=== PATIENT | male | born 1945 | race Caucasian/White ===

== ENCOUNTER 2019-10-28 10:38 | Inpatient (IN) ==
--- NOTE | 2019-10-28 11:54 | Emergency Department Note ---
History of Present Illness General Chief Complaint: Fall History of Present Illness This patient is a 74-year-old male who presents to the emergency department by ambulance for evaluation of severe pain in the right lateral hip secondary to a fall. The patient slipped on a step walking into [place]. He fell directly on the outside of his right hip. He also sustained a minor abrasion to the right elbow. He denies hitting his head. He denies any neck or back pain. No injuries to his chest or abdomen. Patient has a history of a hip replacement 4 years ago. His pain is sharp, stabbing in nature. It is worse with weightbearing. He is having difficulty putting any weight on the right leg. He has not taken anything for pain. Home Medications Home Medications Medication Instructions Recorded Confirmed Type lisinopril 5 mg PO DAILY 10/28/19 10/28/19 History rosuvastatin 20 mg PO DAILY 10/28/19 10/28/19 History sitagliptin [Januvia] 50 mg PO DAILY 10/28/19 10/28/19 History tamsulosin 0.4 mg PO DAILY 10/28/19 10/28/19 History Allergies Allergy/AdvReac Type Severity Reaction Status Date / Time No Known Allergies Allergy Unverified 10/28/19 11:11 Past Med/Surg History Social History Preferred Language: Korean Communication Ability: Effective Beliefs That Will Affect Care: Latter-Day Latter-Day Beliefs: ORIENTAL ORTHODOX Current Living Situation: Alone Other Information That Helps Us Care for You: No Feels Safe at Home: Yes Safety Concerns: Feels Safe At This Time Smoking Status: Never smoker Hx Alcohol Use: No Hx Substance Use: No Review of Systems A total of 10 systems reviewed and were otherwise negative Physical Exam Vital Signs Vital Signs - 24 hr 10/28/19 10:44 10/28/19 10:45 10/28/19 12:00 Temperature 36.5 C Temperature Source Oral Pulse Rate 59 L 67 Pulse Rate from SpO2 Sensor 61 63 Respiratory Rate 15 21 17 Respiratory Effort / Characteristics Non-Labored Spontaneous Respiratory Depth Normal Blood Pressure 159/62 H 159/62 H Blood Pressure Mean 85 94 Blood Pressure Position Sitting Pulse Oximetry 99 99 98 Oxygen Delivery Method Room Air Sepsis Recent Fever Within 48 Hours No Sepsis Action Taken by Nursing No Action Required 10/28/19 12:03 10/28/19 12:19 10/28/19 12:30 Temperature Temperature Source Pulse Rate 66 61 Pulse Rate from SpO2 Sensor 63 65 60 Respiratory Rate 20 18 16 Respiratory Effort / Characteristics Respiratory Depth Blood Pressure 162/90 H 162/90 H Blood Pressure Mean 119 119 Blood Pressure Position Pulse Oximetry 98 98 99 Oxygen Delivery Method Sepsis Recent Fever Within 48 Hours Sepsis Action Taken by Nursing 10/28/19 13:57 10/28/19 14:00 10/28/19 14:30 Temperature Temperature Source Pulse Rate 63 60 63 Pulse Rate from SpO2 Sensor 63 61 63 Respiratory Rate 13 9 L 13 Respiratory Effort / Characteristics Respiratory Depth Blood Pressure 149/70 H 149/76 H 169/92 H Blood Pressure Mean 84 107 123 Blood Pressure Position Pulse Oximetry 99 99 99 Oxygen Delivery Method Sepsis Recent Fever Within 48 Hours Sepsis Action Taken by Nursing Constitutional WD/WN, vitals as above Eyes EOM intact bilaterally ENMT external ear and nose normal, oropharynx normal Neck trachea midline Respiratory normal respiratory effort, lungs clear to auscultation Cardiovascular RRR, no murmur, no edema Gastrointestinal (Abdomen) normal bowel sounds, soft, nontender, no hepatosplenomegaly Musculoskeletal Tenderness to palpation noted over the lateral aspect of the right hip. The patient is reluctant to flex the hip. No limb length discrepancy noted. Sensation in the lower extremities is intact bilaterally. DP pulse +2 bilaterally dorsiflexion and plantarflexion of the feet intact bilaterally. Skin no rashes, warm and dry Neurologic Alert and oriented x3. No focal motor deficits. Psychiatric Acting appropriately Course The patient was seen and examined. He declined pain medication. Imaging was performed and reviewed Upon reevaluation, the patient was resting comfortably. We discussed his results. He and his daughter voiced understanding. The case was discussed with orthopedics in addition to the hospitalist group Labs are drawn. A saline lock was established. The patient will be evaluated by the hospitalist group for likely admission Consultations Consultation #1: Dr. Beltran Consultation #2: [place] hospitalist group Administered Medications Sodium Chloride (Nss 1000ml) 1,000 mls @ 80 mls/hr IV .[id number] JAMES Stop: 10/29/19 04:29 Last Admin: 10/28/19 16:30 Dose: 80 mls/hr Documented by: [id number] Insulin Aspart (Novolog Flexpen) 0 units SC ACHS JAMES Stop: 11/27/19 16:29 Last Admin: 10/28/19 20:49 Dose: Not Given Documented by: [id number] Cosigned by: [id number] Admin: 10/28/19 17:21 Dose: 2 units Documented by: [id number] Cosigned by: [id number] Lisinopril (Zestril) 5 mg PO DAILY JAMES Stop: 11/27/19 16:29 Last Admin: 10/28/19 17:26 Dose: 5 mg Documented by: [id number] Senna/Docusate Sodium (Senokot S) 2 tab PO HS JAMES Stop: 11/27/19 20:59 Last Admin: 10/28/19 20:36 Dose: Not Given Documented by: [id number] Medical Decision Making Differential Diagnosis dislocation, fracture, contusion, abrasion and soft tissue injury Medical Records Attestation: I reviewed the patient's medical records. Home Medications Current Medication List: was personally reviewed by me Laboratory Data Attestation: I reviewed the patient's lab results. Result diagrams: 10/28/19 13:35 10/28/19 13:35 Lab Results 10/28/19 10/28/19 10/28/19 Range/Units 13:35 13:35 13:35 WBC 8.65 (4.8-10.8) K/uL RBC 4.05 L (4.7-6.1) M/uL Hgb 12.9 L (14.0-18.0) g/dL Hct 38.2 L (42-52) % MCV 94.3 (80-100) fL MCH 31.9 (25-34) pg MCHC 33.8 (32-36) g/dL RDW Std Deviation 43.2 (36.4-46.3) fL RDW Coeff of [place] 12.6 (11.5-14.5) % Plt Count 172 (130-400) K/uL MPV 8.8 (7.4-10.4) fL Immature Gran % (Auto) 0.2 % Neut % (Auto) 81.8 % Lymph % (Auto) 8.8 % [place] % (Auto) 7.2 % Eos % (Auto) 1.8 % Baso % (Auto) 0.2 % Immature Gran # (Auto) 0.02 (0.00-0.02) K/uL Neut # (Auto) 7.07 H (1.4-6.5) K/uL Lymph # (Auto) 0.76 L (1.2-3.4) K/uL [place] # (Auto) 0.62 H (0.11-0.59) K/uL Eos # (Auto) 0.16 (0-0.5) K/uL Baso # (Auto) 0.02 (0-0.2) K/uL PT 10.3 (9.0-12.0) Seconds INR 1.0 (0.9-1.1) Sodium 139 (136-145) mmol/L Potassium 4.5 (3.5-5.1) mmol/L Chloride 109 H (98-107) mmol/L Carbon Dioxide 24 (21-32) mmol/L Anion Gap 6.0 (3-11) BUN 26 H (7-18) mg/dl Creatinine 1.77 H (0.6-1.4) mg/dl Est Cr Clr Drug Dosing 39.6 ml/min Est GFR ( Amer) 43.2 Est GFR (Non-Af Amer) 37.3 BUN/Creatinine Ratio 14.9 (10-20) Glucose 134 H (70-99) mg/dl Calcium 9.3 (8.5-10.1) mg/dl Imaging Data Attestation: I personally reviewed and interpreted this imaging study as follows: Radiologist's Impression: X-rays right hip with pelvis Total right hip arthroplasty 2. Suspected nondisplaced proximal periprosthetic fracture. 3. No evidence of dislocation Electronically signed by: Augustus Moya M.D. 10/28/2019 11:53 AM Dictated: 10/28/19 1150 Transcribed: 10/28/19 1150 Blood Pressure Blood Pressure Findings: Elevated blood pressure Blood Pressure Disposition: elevated BP felt to be situational MDM Narrative This patient is a 74-year-old male presents to the emergency department for evaluation of hip pain. On exam, he was neurovascularly intact. He did have significant pain. The patient has a history of a prosthetic hip. He did not want anything for pain. X-rays were performed and confirmed a periprosthetic fracture. The case was discussed with orthopedics. The patient will be evaluated by the hospitalist for likely admission and orthopedic evaluation. The patient was comfortable with this plan. Impression & Plan Closed fracture of right hip Discharge Plan Visit Data *Final* Discharge Date/Time: 10/28/19 15:22 Chief Complaint: Fall ED Provider: Murali Munson ED Midlevel Provider: Jossy Kolb Discharge Problem: Closed fracture of right hip Patient Disposition: Admitted As Inpatient Discharge Instructions Interventions: ED Discharge Assessment Last Done: 10/28/19 15:22
--- NOTE | 2019-10-28 11:54 | XRay Report ---
XR hip RT 2V w pelvis CLINICAL HISTORY: Right hip pain status post trauma COMPARISON: None. DISCUSSION: There are postsurgical changes of a total right hip arthroplasty. There is a linear lucen cy involving the proximal femoral shaft just inferior to the greater trochanter extending to the pros thesis. This may indicate a nondisplaced periprosthetic fracture. There is no dislocation. IMPRESSION: 1. Total right hip arthroplasty 2. Suspected nondisplaced proximal periprosthetic fracture. 3. No evidence of dislocation Electronically signed by: Augustus Moya M.D. 10/28/2019 11:53 AM
[2019-10-28 13:44] LABS: Basophils # (auto) 0.02 K/uL (0-0.2); Basophils % (auto) 0.2 %; Eosinophils # (auto) 0.16 K/uL (0-0.5); Eosinophils % (auto) 1.8 %; Hematocrit (blood only) 38.2 % (42-52); Hemoglobin 12.9 g/dL (14.0-18.0); Immature Granulocytes # (auto) 0.02 K/uL (0.00-0.02); Immature Granulocytes % (auto) 0.2 %; Lymphocytes # (auto) 0.76 K/uL (1.2-3.4); Lymphocytes % (auto) 8.8 %; Mean Corpuscular Hemoglobin 31.9 pg (25-34); Mean Corpuscular Hgb Conc 33.8 g/dL (32-36); Mean Corpuscular Volume 94.3 fL (80-100); Mean Platelet Volume 8.8 fL (7.4-10.4); Monocytes # (auto) 0.62 K/uL (0.11-0.59); Monocytes % (auto) 7.2 %; Neutrophils # (auto) 7.07 K/uL (1.4-6.5); Neutrophils % (auto) 81.8 %; Platelet Count 172 K/uL (130-400); RDW Coefficient of Variation 12.6 % (11.5-14.5); RDW Standard Deviation 43.2 fL (36.4-46.3); Red Blood Count 4.05 M/uL (4.7-6.1); White Blood Count 8.65 K/uL (4.8-10.8)
[2019-10-28 14:00] LABS: BUN Creatinine Ratio 14.9 (10-20); Calcium 9.3 mg/dl (8.5-10.1); Creatinine Clr Calc Pharmacy 39.6 ml/min; Est GFR (African American) 43.2; Est GFR (Non-African American) 37.3; Potassium 4.5 mmol/L (3.5-5.1)
[2019-10-28 14:03] LABS: Prothrombin Time 10.3 Seconds (9.0-12.0)
[2019-10-28] MEDS ORDERED: MoRPHine SULFATE 2 MG/ML CARP IV PRN ×2 (14:39→15:43)
--- NOTE | 2019-10-28 14:56 | History & Physical Report ---
Date of Service October 28, 2019 Assessment & Plan (1) Closed right hip fracture: due to mechanical fall/lost of balance Patient slipped on steps while walking into [place] today lost his balance and fell directly on the right side, also sustained a minor abrasion of right elbow, experienced sharp /stabbing pain on rt him /worse with weightbearing. had difficulty putting any weight on the right leg. did not hit his head /no loss on consciousness No complaint of neck or back pain Denies of any dizzy spell or lightheadedness prior or after the fall, no SOB , no palpitation Patient had right hip replacement by Dr Nicolle AC on 01/03/2015 X-ray of hip shows non displaced right periprosthetic fracture [facility] is admitted[facility] of right hip Patient is ordered n.p.o. past midnight PRE-OP RISK ASSESSMENT At baseline patient is very active, Well-controlled diabetes, recent hb globin A1c 6.2 CKD stage III creatinine at baseline, No prior history of coronary artery disease, no CT, no CHF, no arrhythmia Patient patient has acceptable risk for orthopedics procedure if indicated No further cardiac work-up needed preoperatively (2) Diabetes: Type 2 diabetes /Hemoglobin A1c 6.2 on 08/14/19 ( well controlled ) On oral meds: Januvia-which will be on hold during hospital stay Insulin sliding scale, (3) CKD (chronic kidney disease) stage 3, GFR 30-59 ml/min: CKD stage III: Due to diabetic nephropathy, follows with [facility] nephrology Dr. Becerril Baseline creatinine 1.8 on 08/14/19 /estimated GFR 35 Patient had recent hospital visit with nephrology on 10/11/2019 Patient noted to be stable from chronic kidney disease standpoint Renal ultrasound on March 2019: Mild cortical changes consistent with CKD Mildly enlarging simple appearing left upper pole renal cyst with additional left parapelvic renal cyst Creatinine 1.77 which is approximate baseline Follow BMP closely as increased risk of volume loss/dehydration, acute kidney injury postoperatively Avoid NSAIDs, Avoid IV contrast HTN : BP elevated 169/92 cont Lisinopril 5 mg daily adequate pain control HYPERLIPIDEMIA : cont statin CODE STATUS : FULL CODE DVT PROPHYLAXIS : scd and teds -pre op will need Pharmacological anticoagulation post op - follow recommendation per Ortho guideline DISPOSITION : admit to med/tele PT/OT post op as per Ortho Follows with Dr Pak at [facility] History of Present Illness Chief Complaint: Fall, right hip fracture Primary Care Provider: Art Santamaria MD Disease a 74-year-old male with past medical history of type 2 diabetes, CKD stage III, hypertension, hyperlipidemia DJD status post right hip replacement approximately 4 years back In the fall landing on his right side at discharge today Patient states that he slipped on the step and lost his balance Denies of any dizzy spell or lightheadedness prior or after the fall Denies of any shortness of breath or dyspnea on exertion, At baseline very active X-ray of hip shows nondisplaced periprosthetic fracture on right hip Allergies Allergy/AdvReac Type Severity Reaction Status Date / Time No Known Allergies Allergy Unverified 10/28/19 11:11 Home Medications Home Medications Medication Instructions Recorded Confirmed Type lisinopril 5 mg PO DAILY 10/28/19 10/28/19 History rosuvastatin 20 mg PO DAILY 10/28/19 10/28/19 History sitagliptin [Januvia] 50 mg PO DAILY 10/28/19 10/28/19 History tamsulosin 0.4 mg PO DAILY 10/28/19 10/28/19 History Past Med/Surg History Social History Preferred Language: Sudanese Communication Ability: Effective Beliefs That Will Affect Care: Denominational Denominational Beliefs: ANABAPTIST Current Living Situation: Alone Other Information That Helps Us Care for You: No Feels Safe at Home: Yes Safety Concerns: Feels Safe At This Time Smoking Status: Never smoker Hx Alcohol Use: No Hx Substance Use: No Review of Systems Review of Systems: All systems reviewed & are unremarkable except as noted in HPI & below Physical Exam Constitutional: WD/WN, vitals as above no acute distress Eyes: PERRL, conjunctivae normal, anicteric sclerae ENMT: external ear and nose normal, oropharynx normal Neck: trachea midline, no thyromegaly Respiratory: normal respiratory effort, lungs clear to auscultation Cardiovascular: RRR, no murmur, no edema Gastrointestinal (Abdomen): normal bowel sounds, soft, nontender, no hepatosplenomegaly Musculoskeletal: Point tenderness on right hip area no overlying bruits noted Limited range of movement on right leg secondary to right hip pain Neurologic: PERRL, EOMI, accommodation nl, no face palsy, no dysarthria Psychiatric: A+Ox3, euthymic affect Results & Data Vital Signs (Past 12 Hours) Vital Signs Temp Pulse Resp BP Pulse Ox 10/28/19 14:30 63 13 169/92 H 99 10/28/19 14:00 60 9 L 149/76 H 99 10/28/19 13:57 63 13 149/70 H 99 10/28/19 12:30 61 16 99 10/28/19 12:19 66 18 162/90 H 98 10/28/19 12:03 20 162/90 H 98 10/28/19 12:00 17 98 10/28/19 10:45 36.5 C 67 21 159/62 H 99 10/28/19 10:44 59 L 15 159/62 H 99 Diagnostic Findings XR hip RT 2V w pelvis CLINICAL HISTORY: Right hip pain status post trauma COMPARISON: None. DISCUSSION: There are postsurgical changes of a total right hip arthroplasty. There is a linear lucency involving the proximal femoral shaft just inferior to the greater trochanter extending to the prosthesis. This may indicate a nondisplaced periprosthetic fracture. There is no dislocation. IMPRESSION: 1. Total right hip arthroplasty 2. Suspected nondisplaced proximal periprosthetic fracture. 3. No evidence of dislocation Code Status & VTE Plan VTE Prophylaxis Plan VTE Prophylaxis will be ordered: Yes
[2019-10-28] MEDS ORDERED: GLUCAGON FOR INJ 1 MG VIAL SQ PRN (15:43)
[2019-10-28] MEDS ORDERED: NALOXONE HCL 0.4 MG/1 ML VIAL/CARP IV PRN (15:43)
[2019-10-28] MEDS ORDERED: MAGNESIUM HYDROXIDE SUSP 30 ML UDC PO PRN (15:43)
[2019-10-28] MEDS ORDERED: ACETAMINOPHEN 325 MG TAB PO PRN (15:43)
[2019-10-28] MEDS ORDERED: POLYETHYLENE (MIRALAX) 17 GM PACK PO PRN (15:43)
[2019-10-28] MEDS ORDERED: GLUCOSE 40% GEL 15 GM TUBE PO PRN (15:43)
[2019-10-28] MEDS ORDERED: ALUMINUM/MAGNESIUM SUSP 30 ML UDC PO PRN (15:43)
[2019-10-28] MEDS ORDERED: ONDANSETRON INJ 2 MG/ML 2 ML VIAL IV PRN (15:43)
[2019-10-28] MEDS ORDERED: OXYCODONE HCL IR 5 MG TAB (IMMEDIATE RELEASE) PO PRN (15:43)
[2019-10-28] MEDS ORDERED: BISACODYL 10 MG SUPP PR PRN (15:43)
[2019-10-28] MEDS ORDERED: GLUCOSE 10 TABS/TUBE PO PRN (15:43)
[2019-10-28] MEDS ORDERED: MoRPHine SULFATE 4 MG/ML 1 ML CARP\\VIAL IV PRN (15:43)
[2019-10-28] MEDS ORDERED: CARBOHYDRATES FOR HYPOGLYCEMIA PO PRN (15:43)
[2019-10-28] MEDS ORDERED: DEXTROSE 50% 50 ML SYRINGE IV PRN (15:43)
[2019-10-28] MEDS ORDERED: SODIUM CHLORIDE 0.9% 1000ML 1,000 ML IV SCH (16:00)
[2019-10-28] MEDS ORDERED: ACETAMINOPHEN 500 MG TAB PO PRN (16:20)
[2019-10-28] MEDS: INSULIN ASPART 100 UNITS/ML 3 ML PEN SC SCH ×2 (17:21→20:49)
[2019-10-28] MEDS: LISINOPRIL 5 MG TAB PO SCH (17:26)
[2019-10-28] MEDS: DOCUSATE SODIUM/SENNA 50/8.6MG TAB PO SCH (20:36)
[2019-10-29] MEDS ORDERED: SODIUM CHLORIDE 0.9% 1000ML 1,000 ML IV SCH (05:45)
[2019-10-29] MEDS ORDERED: CEFAZOLIN 3000MG 65 ML IV SCH (06:00)
[2019-10-29 06:59] LABS: Hematocrit (blood only) 34.2 % (42-52); Hemoglobin 11.4 g/dL (14.0-18.0); Mean Corpuscular Hemoglobin 31.2 pg (25-34); Mean Corpuscular Hgb Conc 33.3 g/dL (32-36); Mean Corpuscular Volume 93.7 fL (80-100); Mean Platelet Volume 9.2 fL (7.4-10.4); Platelet Count 146 K/uL (130-400); RDW Coefficient of Variation 12.8 % (11.5-14.5); Red Blood Count 3.65 M/uL (4.7-6.1)
[2019-10-29 07:45] LABS: BUN Creatinine Ratio 14.2 (10-20); Calcium 8.6 mg/dl (8.5-10.1); Creatinine Clr Calc Pharmacy 37.7 ml/min; Est GFR (African American) 40.7; Est GFR (Non-African American) 35.1; Potassium 4.4 mmol/L (3.5-5.1)
[2019-10-29 07:54] LABS: Estimated Average Glucose 131 mg/dl; Hemoglobin A1C 6.2 % (4.5-5.6)
[2019-10-29] MEDS: LISINOPRIL 5 MG TAB PO SCH (07:54)
[2019-10-29] MEDS: INSULIN ASPART 100 UNITS/ML 3 ML PEN SC SCH ×4 (07:54→21:50)
[2019-10-29] MEDS: ROSUVASTATIN CALCIUM 20 MG TAB PO SCH (07:55)
[2019-10-29] MEDS: TAMSULOSIN HCL 0.4 MG CAP PO SCH (07:55)
--- NOTE | 2019-10-29 10:12 | Orthopedic Consultation ---
Date of Consultation October 29, 2019 Assessment & Plan (1) Romina-prosthetic fracture around prosthetic hip: Nondisplaced right proximal femur periprosthetic fracture of the greater trochanter. Stable appearing hip prosthesis. Fracture pattern amenable to nonoperative treatment. This would include toe-touch nonweightbearing right lower extremity. Abduction precautions. We will obtain CT scan to evaluate fracture pattern further and follow-up those results once available. Thank you for the consultation. History of Present Illness Reason for Consultation: Right proximal femur periprosthetic fracture Attending Physician: Denita Blackburn MD History of Present Illness The patient is a 74-year-old male who presents secondary to a mechanical fall from standing height on 10/28/2019 while ambulating to [employer]. Reports fall onto right side and subsequent pain and difficulty ambulating. This prompted him to be seen at [facility] emergency department. X-rays the right hip demonstrate a nondisplaced proximal femur periprosthetic fracture of the greater trochanter. He was admitted for further inpatient observation and treatment. He denies hitting head or loss of consciousness. Denies any numbness or tingling down his right lower extremity. Prior total hip replacement performed in December [address] Valverde. Allergies Allergy/AdvReac Type Severity Reaction Status Date / Time No Known Allergies Allergy Unverified 10/28/19 11:11 Home Medications Home Medications Medication Instructions Recorded Confirmed Type lisinopril 5 mg PO DAILY 10/28/19 10/28/19 History rosuvastatin 20 mg PO DAILY 10/28/19 10/28/19 History sitagliptin [Januvia] 50 mg PO DAILY 10/28/19 10/28/19 History tamsulosin 0.4 mg PO DAILY 10/28/19 10/28/19 History Patient History Social History Preferred Language: Yemeni Communication Ability: Effective Beliefs That Will Affect Care: Scientologist Scientologist Beliefs: CONFUCIANISM Current Living Situation: Alone Other Information That Helps Us Care for You: No Feels Safe at Home: Yes Safety Concerns: Feels Safe At This Time Smoking Status: Never smoker Hx Alcohol Use: No Hx Substance Use: No Review of Systems Review of Systems: All systems reviewed & are unremarkable except as noted in HPI & below Constitutional: as per Subjective / HPI Physical Exam Physical Exam: RLE NVSI +EHL/FHL/TA/GS SILT grossly, +2 DP pulse, compartments soft NT, skin overlying right hip clean dry and intact. Constitutional: WD/WN, vitals as above Results & Data Vital Signs (Past 12 Hours) Vital Signs Temp Pulse Pulse Resp BP Pulse Ox 10/29/19 07:39 37.2 C 73 18 121/58 L 96 10/29/19 07:28 73 10/29/19 03:11 36.9 C 73 20 127/66 95 10/28/19 23:56 74 10/28/19 23:30 36.7 C 79 18 137/63 97 Diagnostic Findings XR hip RT 2V w pelvis CLINICAL HISTORY: Right hip pain status post trauma COMPARISON: None. DISCUSSION: There are postsurgical changes of a total right hip arthroplasty. There is a linear lucency involving the proximal femoral shaft just inferior to the greater trochanter extending to the prosthesis. This may indicate a no ndisplaced periprosthetic fracture. There is no dislocation. IMPRESSION: 1. Total right hip arthroplasty 2. Suspected nondisplaced proximal periprosthetic fracture. 3. No evidence of dislocation
--- NOTE | 2019-10-29 11:30 | CT Scan Report ---
CT hip RT wo con HISTORY: 74 years-old Male Right periprosthetic proximal femur fracture acute right hip pain status post fall COMPARISON: Pelvis and right hip radiographs 10/28/2019 TECHNIQUE: Multiple axial CT images of the right hip were obtained without the use of IV contrast. A dose lowering technique was used consistent with the principals of KIRILL. FINDINGS: Right hip total joint arthroplasty. The hardware appears intact. No evidence of hardware loosening. S treak artifact from the hardware limits evaluation of the adjacent tissues. There is an acute nondisp laced multiplanar mildly comminuted periprosthetic fracture of the proximal right femur which is best seen on the sagittal images. The fracture involves the greater trochanter and lateral subtrochanteri c cortex of the proximal right femur (for example image 203 of series 3). The imaged pelvic bones jame ear intact. Subcutaneous edema is noted lateral to the right hip with additional deep tissue edema within the med ial tissues surrounding the sartorius. Arterial calcifications are noted. Nonspecific mildly prominen t right inguinal lymph nodes. Urinary bladder distention is noted along with prostamegaly. IMPRESSION: 1. Right hip total joint arthroplasty is noted with acute comminuted nondisplaced periprosthetic frac ture which predominantly involves the greater trochanter and extends into the lateral subtrochanteric cortex. 2. Mild subcutaneous edema of the lateral hip is likely posttraumatic. Additionally, there is deep ti ssue edema surrounding the imaged sartorius muscle. Correlate clinically to exclude muscle strain. The above report was generated using voice recognition software. It may contain grammatical, syntax o r spelling errors. Electronically signed by: Hardy Wolf M.D. 10/29/2019 11:28 AM
[2019-10-29] MEDS ORDERED: ACETAMINOPHEN 500 MG TAB PO PRN (12:47)
--- NOTE | 2019-10-29 15:18 | Hospitalist Progress Note ---
Date of Service October 29, 2019 Assessment & Plan (1) Closed right hip fracture: due to mechanical fall/lost of balance Patient slipped on steps while walking into [place] Denies of any dizzy spell or lightheadedness prior or after the fall, no SOB , no palpitation Patient had right hip replacement by Dr Nicolle AC on 01/03/2015 X-ray of hip shows non displaced right periprosthetic fracture Patient is admitted, [facility] consulted Appreciate input from orthopedics team: CT of right hip ordered: Shows non displaced comminuted fracture of the greater trochanter, stable prosthesis. Indication for surgical procedure, conservative approach only Recommend toe touch non weight bearing right lower extremity. Abduction precautions. Follow up in orthopedics office office in 1-2 weeks, We will have a repeat right hip x-ray for assessment (2) Diabetes: Type 2 diabetes /Hemoglobin A1c 6.2 on 08/14/19 ( well controlled ) oral med: Januvia-Was kept on hold during hospital stay Insulin sliding scale, (3) CKD (chronic kidney disease) stage 3, GFR 30-59 ml/min: CKD stage III: Due to diabetic nephropathy, follows with [facility] nephrology Dr. Becerril Baseline creatinine 1.8 on 08/14/19 /estimated GFR 35 Patient had recent hospital visit with nephrology on 10/11/2019 Patient noted to be stable from chronic kidney disease standpoint Renal ultrasound on March 2019: Mild cortical changes consistent with CKD Mildly enlarging simple appearing left upper pole renal cyst with additional left parapelvic renal cyst Creatinine 1.77 which is approximate baseline HTN : BP elevated 169/92 cont Lisinopril 5 mg daily adequate pain control HYPERLIPIDEMIA : cont statin CODE STATUS : FULL CODE DVT PROPHYLAXIS : scd and teds - DISPOSITION : Plan for discharge home tomorrow Follows with Dr Pak at [facility] Subjective has minimum pain on rt hip offers no other complaint, no complaint of shortness of breath, no fever or chills Patient input from orthopedics team, recommends nonweightbearing on right No surgery indicated Physical Exam Constitutional: WD/WN, vitals as above no acute distress Eyes: PERRL, conjunctivae normal, anicteric sclerae ENMT: external ear and nose normal, oropharynx normal Neck: trachea midline, no thyromegaly Respiratory: normal respiratory effort, lungs clear to auscultation Cardiovascular: RRR, no murmur, no edema Gastrointestinal (Abdomen): normal bowel sounds, soft, nontender, no hepatosplenomegaly Neurologic: PERRL, EOMI, accommodation nl, no face palsy, no dysarthria Psychiatric: A+Ox3, euthymic affect Results & Data Vital Signs (Past 12 Hours) Vital Signs Temp Pulse Pulse Resp BP Pulse Ox 10/29/19 14:50 36.8 C 69 18 179/70 H 95 10/29/19 12:05 36.6 C 65 18 152/63 H 96 10/29/19 07:39 37.2 C 73 18 121/58 L 96 10/29/19 07:28 74
[2019-10-29] MEDS: DOCUSATE SODIUM/SENNA 50/8.6MG TAB PO SCH (21:56)
[2019-10-30] MEDS: TAMSULOSIN HCL 0.4 MG CAP PO SCH (09:14)
[2019-10-30] MEDS: ROSUVASTATIN CALCIUM 20 MG TAB PO SCH (09:14)
[2019-10-30] MEDS: LISINOPRIL 5 MG TAB PO SCH (09:15)
[2019-10-30] MEDS: INSULIN ASPART 100 UNITS/ML 3 ML PEN SC SCH ×2 (09:17→12:46)
--- NOTE | 2019-10-30 13:46 | Discharge Summary ---
Date of Service October 30, 2019 Admission HPI Per Admitting Provider Disease a 74-year-old male with past medical history of type 2 diabetes, CKD stage III, hypertension, hyperlipidemia DJD status post right hip replacement approximately 4 years back In the fall landing on his right side at discharge today Patient states that he slipped on the step and lost his balance Denies of any dizzy spell or lightheadedness prior or after the fall Denies of any shortness of breath or dyspnea on exertion, At baseline very active X-ray of hip shows nondisplaced periprosthetic fracture on right hip Principal Diagnosis RIGHT HIP FRACTURE Discharge Exam Constitutional WD/WN, vitals as above no acute distress Eyes PERRL, conjunctivae normal, anicteric sclerae ENMT external ear and nose normal, oropharynx normal Neck trachea midline, no thyromegaly Respiratory normal respiratory effort, lungs clear to auscultation Cardiovascular RRR, no murmur, no edema Gastrointestinal (Abdomen) normal bowel sounds, soft, nontender, no hepatosplenomegaly Neurologic PERRL, EOMI, accommodation nl, no face palsy, no dysarthria Psychiatric A+Ox3, euthymic affect Discharge Data Allergies Allergy/AdvReac Type Severity Reaction Status Date / Time No Known Allergies Allergy Unverified 10/28/19 11:11 Consultations 10/28/19 15:43 Consult Case Management - Discharge Planning Routine Consult Orthopedic Surgery Routine Ordered Studies 10/29/19 10:15 CT hip RT wo con Routine Hospital Course (1) Closed right hip fracture: due to mechanical fall/lost of balance Patient slipped on steps while walking into [place] Denies of any dizzy spell or lightheadedness prior or after the fall, no SOB , no palpitation Patient had right hip replacement by Dr Nicolle AC on 01/03/2015 X-ray of hip shows non displaced right periprosthetic fracture Patient is admitted, [facility] consulted Appreciate input from orthopedics team: CT of right hip Shows non displaced comminuted fracture of the greater trochanter, stable prosthesis. per Orthopedics -no need for surgical procedure conservative approach only Recommend toe touch non weight bearing right lower extremity. Abduction precautions. Follow up in orthopedics office office in 1-2 weeks, will have a repeat right hip x-ray for assessment (2) Diabetes: Type 2 diabetes /Hemoglobin A1c 6.2 on 9/17/19 ( well controlled ) oral med: Januvia-Was kept on hold during hospital stay Insulin sliding scale, Januvia resumed on discharge (3) CKD (chronic kidney disease) stage 3, GFR 30-59 ml/min: CKD stage III: Due to diabetic nephropathy, follows with [facility] nephrology Dr. Becerril Baseline creatinine 1.8 on 08/14/19 /estimated GFR 35 Patient had recent hospital visit with nephrology on 10/11/2019 Patient noted to be stable from chronic kidney disease standpoint Renal ultrasound on March 2019: Mild cortical changes consistent with CKD Mildly enlarging simple appearing left upper pole renal cyst with additional left parapelvic renal cyst Creatinine 1.77 which is approximate baseline HTN : BP elevated 169/92 cont Lisinopril 5 mg daily adequate pain control HYPERLIPIDEMIA : cont statin CODE STATUS : FULL CODE DVT PROPHYLAXIS : scd and teds - DISPOSITION : stable to be discharged home today Follows with Dr Pak at [facility] Total Time Total Time Spent Total Time Spent (In Minutes): approx 40 mins Total Time Includes: Examination of the Patient, Discharge Planning and Medication Reconciliation Discharge Plan Discharge Items Patient Disposition: Home - Home Health Services Reason For Visit: FALL/ HIP FRACTURE Discharge Diagnosis: RIGHT HIP FRACTURE Activity: As commented below Driving/Machine Use: FOR 8 WEEKS Weightbearing: Right non-weightbearing and Right toe touch Non-emergency contact: Primary Care Provider Call non-emergency contact if: you have any medication questions Follow-up/Referrals: Art Santamaria MD [Primary Care Provider] - 11/01/19 11:05 am Aaron Reynolds DO [Physician] - (FOLLOW UP IN 2 WEEKS, WILL NEED REPEAT XRAY OF RIGHT HIP ) Diet: Heart Healthy Addtl Attending Provider Instructions: DO NOT DRIVE FOR 6-8 WEEKS TILL CLEARED BY ORTHOPEDICS [facility] 2 WEEKS REPEAT XRAY OF HIP WILL BE DONE AT [facility] WITH [facility]EXT VISIT Pending Studies at Discharge: Yes Studies:: RIGHT HIP XRAY IN 2 WEEKS Stand-Alone Forms: My Social[employer], Smoking Cessation Medications and DC Order Prescriptions: Continued tamsulosin 0.4 mg capsule 0.4 mg PO DAILY RF: 0 lisinopril 5 mg tablet 5 mg PO DAILY RF: 0 rosuvastatin 20 mg tablet 20 mg PO DAILY RF: 0 Januvia 50 mg tablet 50 mg PO DAILY RF: 0 Discharge Orders: Discharge Order (Routine); Ordered 10/30/19 Ordered By: Denita Braswell/Other Patient Handouts: Pain Management, Fx Hip Admission Data Admit Date/Time: 10/28/19 14:38 Attending Provider: Denita Blackburn Admit Provider: Denita Blackburn Primary Care Provider: Art Santamaria Other Providers: Faizan Muse ; Suleman Acosta ; Sesar Krishnan ; Rahel Medina Thomas J ; Anna Baum ; Bo Hutchins ; Cody Ott ; Aubrey Loera ; Cody Walker Andrew J. ; Aubrey Hayes ; Hernan Voss ; Rk Grant ; Cuong Shay ; Jabier Palma ; Marco Perkins ; Anna Leo Casey R ; Flaco Beltran ; Keyshawn Domingo Other Interventions: Discharge Summary Assessment (RN) Last Done: 10/30/19 13:40
== END 2019-10-30 14:16 | disposition home health service (06) | DRG 561 ==
LOC: ED 10:38 → 2N 14:38 → 3W 10-29 14:46